=== PATIENT | male | born 1950 | race Caucasian/White ===

== ENCOUNTER 2016-10-27 11:37 | Emergency (ER) | payer OTHER ==
[~2016-10-27] VITALS: Wt 80.0 kg
--- NOTE | 2016-10-27 16:24 | RADRPT ---
PROCEDURE: US orbits. CLINICAL INDICATION: Bilateral visual disturbance. TECHNIQUE: High-resolution sonography of the orbits was performed in the axial and sagittal planes . COMPARISON: None. FINDINGS: On the right side, the anterior chamber is normal. There is a thin linear region of increased echog enicity in the posterior chamber superiorly consistent with retinal detachment. On the left side, the anterior chamber is normal. There is a thin linear region of increased echoge nicity in the posterior chamber medially which may indicate retinal attachment. A small amount of d ebris is noted posteriorly in the posterior chamber which may indicate hemorrhage. IMPRESSION: 1. Findings consistent with right retinal detachment. 2. Possible left retinal detachment and small amount of posterior chamber hemorrhage. 3. Ophthalmology consultation advised. RPTAT: QQ .Max Lala MD, Date Time Electronically viewed and signed by .Max Lala MD, on 10/27/2016 16:23 .R/
[2016-10-27 19:02] VITALS: BP 157/96; PULSE 97; RESP 20; TEMP 97.5
--- NOTE | 2016-10-27 22:04 | ERD ---
ER Documentation Chief Complaint Date/Time DATE: 10/27/16 TIME: 21:57 Chief Complaint RIGHT EYE VISION DISTURBANCE SINCE LAST NIGHT, NO TRAUMA NOTED. HPI 56-year-old male with a past medical history of hypertension presents to the ED complaining of seeing floaters in his right eye that started yesterday at 4:45 PM. Denies wearing any contacts however does wear glasses. States that it feels like he sees spider webs and blobs of powder. States that it also feels like he is seeing tissue within cellophane. Reports that it was in a happy face shaped and it slightly became microscopic with dissolved bubbles. Denies any headache, weakness, numbness or tingling, blurred vision, diplopia, photophobia, eye pain, chest pain, shortness of breath. ROS All systems reviewed and are negative except as per history of present illness. Allergies Allergies: Coded Allergies: No Known Drug Allergies (Verified Allergy, Unknown, 10/27/16) PMhx/Soc Medical and Surgical Hx: pt denies Medical Hx, pt denies Surgical Hx Physical Exam Vitals Vital Signs Date Time Temp Pulse Resp B/P Pulse Ox O2 Delivery O2 Flow Rate FiO2 10/27/16 19:02 97.5 97 20 157/96 100 Room Air 10/27/16 11:42 98.8 87 20 144/88 98 Physical Exam Const: [id number], well-nourished. In no acute distress. Head: Atraumatic, normocephalic Eyes: Normal Conjunctiva without injection. No purulent discharge. PERRLA. EOMI. Red reflex appreciated. ENT: Normal external ear. Ear canal without erythema. Tympanic membrane pearly smith without effusion or bulging. Nasal canal clear with normal turbinates. Moist oropharynx without tonsillar exudates. Non-erythematous pharynx. Uvula midline. No drooling. No trismus. Neck: No cervical midline tenderness. Full range of motion. No meningismus. No cervical lymphadenopathy. No JVD. Resp: Clear to auscultation bilaterally. No wheezing, rhonchi, rales, or crackles. No accessory muscle use. No retractions. Cardio: Regular rate and rhythm. No murmurs, rubs or gallops. Abd: Soft, non tender, non distended. Normal bowel sounds. No palpable masses. No rebound tenderness. No guarding. Negative McBurney's Point. Negative Cornejo's Sign. Skin: Normal skin turgor. No petechiae or rashes Back: No midline tenderness. No CVA tenderness. Ext: No cyanosis, or edema. Distal pulses intact bilaterally. Neur: Awake and alert. Normal gait. Normal coordination. Cranial Nerves II- VII intact. Normal finger to nose. Muscle strength 5/5. Sensation intact. Psych: Normal Mood and Affect Procedures/MDM This is a 66-year-old male with a past medical history of hypertension presents to the ED complaining of right eye floaters. Patient is afebrile and nontoxic- appearing. Patient has normal vital signs. A visual acuity was performed here in the ED. 20/20 right, 20/20 left, 20/20 bilaterally was noted. A bilateral ultrasound of the eyes were done to rule out retinal detachment. PROCEDURE: US orbits. CLINICAL INDICATION: Bilateral visual disturbance. TECHNIQUE: High-resolution sonography of the orbits was performed in the axial and sagittal planes. COMPARISON: None. FINDINGS: On the right side, the anterior chamber is normal. There is a thin linear region of increased echogenicity in the posterior chamber superiorly consistent with retinal detachment. On the left side, the anterior chamber is normal. There is a thin linear region of increased echogenicity in the posterior chamber medially which may indicate retinal attachment. A small amount of debris is noted posteriorly in the posterior chamber which may indicate hemorrhage. IMPRESSION: 1. Findings consistent with right retinal detachment. 2. Possible left retinal detachment and small amount of posterior chamber hemorrhage. 3. Ophthalmology consultation advised. Ultrasound shows findings consistent with a retinal detachment and possible left retinal detachment with small amount of posterior chamber hemorrhage. This was discussed with my supervising physician, Dr. Romo who agreed that we should transfer patient to a facility that has an nuclear process engineer at this time. Low suspicion for ruptured globe, periorbital cellulitis, acute angle closure glaucoma, deep space infection, iritis, traumatic hyphema, conjunctivitis, subconjunctival hemorrhage, corneal abrasion, corneal ulcer, pterygium, hypopyon, blepharitis, hordeolum, chalazion, or other emergent conditions. Patient is hemodynamically stable. Patient will be transferred to [facility] with Dr. Wiley at [facility], opthalmologist for further evaluation. Patient agreed with the transfer plan and his questions were answered. Departure Diagnosis: Primary Impression: Retinal detachment Laterality: bilateral Qualified Code: H33.23 - Retinal detachment, bilateral Condition: Fair HU JOHNSON PA-C Oct 27, 2016 22:04
== END 2016-10-27 21:29 | disposition short-term general hospital (02) ==
LOC: FTE 11:37
DX: H33.23 Serous retinal detachment, bilateral (principal)
CPT/HCPCS: 76536; 99285